=== PATIENT | female | born 1965 | race Caucasian/White ===

== ENCOUNTER 2016-11-21 10:46 | Inpatient (IN) | payer BC, MEDICARE ==
[~2016-11-21] VITALS: Ht 170.2 cm; Wt 64.6 kg
[2016-11-21 11:56] LABS: Basophils # (auto) 0 uL; Basophils % (auto) 0.4 % (0.0-2.0); Eosinophils # (auto) 0.1 uL; Hematocrit 43.3 % (36.0-46.0); Hemoglobin 14.4 g/dL (12.2-16.2); Lymphocytes % (auto) 18.6 % (10.0-50.0); Mean Corpuscular Hemoglobin 28.1 pg (28.0-32.0); Mean Corpuscular Hgb Conc. 33.2 g/dL (32.0-36.0); Mean Corpuscular Volume 84.6 fL (80.0-100.0); Mean Platelet Volume 10.4 fL (7.4-10.4); Monocytes # (auto) 0.4 uL; Monocytes % (auto) 7.2 % (0.0-12.0); Neutrophils # (auto) 3.8 uL; Neutrophils % (auto) 72.8 % (37.0-80.0); Platelet Count (auto) 254 10^3/uL (140-450); Red Cell Distribution Width 13.6 % (11.6-16.0); White Blood Cell 5.2 10^3/uL (4.4-10.8)
[2016-11-21 12:22] LABS: Urine Bilirubin Negative (Negative); Urine Blood Negative /uL (Negative); Urine Color Yellow (Yellow); Urine Nitrite Negative (Negative); Urine RBC <1 /hpf (0 - 4); Urine Squamous Epithelial Cell FEW /hpf (<5); Urine Urobilinogen Normal (Negative); Urine pH 5.5 (5.0-8.0)
[2016-11-21 12:40] LABS: Urine Glucose 4+ mg/dL (Normal); Urine Ketone 2+ (Negative)
[2016-11-21 13:16] LABS: Albumin 3.9 g/dL (3.4-5.0); Anion Gap 18 (5-15); BUN/Creatinine Ratio 17.9; Blood Urea Nitrogen 30 mg/dL (7-18); Carbon Dioxide 20 mmol/L (21-32); Chloride 93 mmol/L (98-107); GFR African American 41 mL/min; GFR Non-African American 34 mL/min; Potassium 4.3 mmol/L (3.5-5.1); Sodium 131 mmol/L (136-145)
[2016-11-21 13:22] LABS: Alkaline Phosphatase 68 U/L (45-117); Bilirubin, Total 0.5 mg/dL (0.2-1.0)
[2016-11-21 13:26] LABS: Aspartate Aminotransferase 7 U/L (15-37)
[2016-11-21 13:37] LABS: Glucose 597 mg/dL (74-106)
[2016-11-21] MEDS ORDERED: SODIUM CHLORIDE 0.9% 1,000 ML IV ONE ×2 (16:09→17:03)
[2016-11-21] MEDS ORDERED: InsuLIN REG 1unit/0.01ml Soln (100units/ml) IV ONE (16:15)
[2016-11-21] MEDS ORDERED: MORPHINE SULFATE 4 MG/ML SYRG IV ONE (17:00)
[2016-11-21] MEDS ORDERED: ONDANSETRON HCL 4 MG/2 ML VIAL IV ONE (17:00)
[2016-11-21] MEDS ORDERED: HYDROcodone-ACET 5/325MG TAB PO PRN (17:45)
[2016-11-21] MEDS ORDERED: TEMAZEPAM 15 MG CAP PO PRN (17:45)
[2016-11-21] MEDS ORDERED: NITROGLYCERIN 0.4 MG SL TAB SL PRN (17:45)
[2016-11-21] MEDS ORDERED: DOCUSATE SOD 100 MG CAP PO PRN (17:45)
[2016-11-21] MEDS ORDERED: MORPHINE SULF INJ 2 MG/ML SYRINGE 1ML IV PRN ×2 (17:45)
[2016-11-21] MEDS ORDERED: ONDANSETRON HCL 4 MG/2 ML VIAL IV PRN (17:45)
[2016-11-21] MEDS ORDERED: glipiZIDE 5 MG TAB PO ONE (17:45)
[2016-11-21] MEDS ORDERED: DEXTROSE (50%) 50ML SYRG IV PRN (17:45)
[2016-11-21] MEDS ORDERED: ACETAMINOPHEN 325 MG TAB PO PRN (17:45)
[2016-11-21] MEDS ORDERED: LORazepam 0.5 MG TAB PO PRN (19:00)
[2016-11-21 20:00] VITALS: BP_SYST 123; BP_SYST 136; BP_DIAS 68; BP_DIAS 76
[2016-11-21] MEDS: ACCU-CHEK COMFORT CURVE STRIP VI SCH (20:14)
[2016-11-21 20:31] VITALS: BP 123/68
[2016-11-21] MEDS: InsuLIN REG 1unit/0.01ml Soln (100units/ml) SC SCH (21:00)
[2016-11-21] MEDS: TACROLIMUS 1 MG CAP PO SCH (22:00)
[2016-11-21] MEDS: MYCOPHENOLATE 500 MG TAB PO SCH (22:00)
[2016-11-21] MEDS: SODIUM CHLOR 0.9% PF (SALINE LOCK) 10ML VIAL IV SCH (22:42)
[2016-11-21] MEDS: LISINOPRIL 10 MG TAB PO SCH (22:42)
[2016-11-22] VITALS (7 sets, daily range): BP systolic 95–150; BP diastolic 54–89
[2016-11-22] MEDS: ACCU-CHEK COMFORT CURVE STRIP VI SCH ×6 (00:24→21:55)
[2016-11-22] MEDS: InsuLIN REG 1unit/0.01ml Soln (100units/ml) SC SCH ×5 (00:32→22:02)
[2016-11-22 05:21] LABS: Basophils % (auto) 0.4 % (0.0-2.0); Eosinophils % (auto) 1.1 % (0.0-7.0); Lymphocytes % (auto) 25.2 % (10.0-50.0); Monocytes % (auto) 8.3 % (0.0-12.0); Neutrophils # (auto) 4.5 uL
[2016-11-22 05:22] LABS: Basophils # (auto) 0 uL; Eosinophils # (auto) 0.1 uL; Hematocrit 40.8 % (36.0-46.0); Hemoglobin 13.6 g/dL (12.2-16.2); Lymphocytes # (auto) 1.8 uL; Mean Corpuscular Hemoglobin 28.3 pg (28.0-32.0); Mean Corpuscular Hgb Conc. 33.4 g/dL (32.0-36.0); Mean Corpuscular Volume 84.5 fL (80.0-100.0); Monocytes # (auto) 0.6 uL; Platelet Count (auto) 244 10^3/uL (140-450); Red Cell Distribution Width 13.6 % (11.6-16.0)
[2016-11-22 05:41] LABS: Potassium 3.7 mmol/L (3.5-5.1)
[2016-11-22 05:47] LABS: Albumin 3.3 g/dL (3.4-5.0); BUN/Creatinine Ratio 18.2; Calcium 8.3 mg/dL (8.5-10.1)
[2016-11-22 05:49] LABS: Bilirubin, Total 0.4 mg/dL (0.2-1.0); Total Protein 5.7 g/dL (6.4-8.2)
[2016-11-22] MEDS: SODIUM CHLOR 0.9% PF (SALINE LOCK) 10ML VIAL IV SCH ×3 (05:57→21:54)
[2016-11-22] MEDS ORDERED: glipiZIDE 5 MG TAB PO SCH (07:00)
[2016-11-22] MEDS: MULTIPLE VITAMIN TAB PO SCH (10:11)
[2016-11-22] MEDS: predniSONE 5 MG TAB PO SCH (10:11)
[2016-11-22] MEDS: MYCOPHENOLATE 500 MG TAB PO SCH ×2 (10:11→21:54)
[2016-11-22] MEDS: TACROLIMUS 1 MG CAP PO SCH ×2 (10:12→21:54)
[2016-11-22] MEDS: CALCIUM W/VIT D (600MG/400IU) TAB PO SCH (10:12)
[2016-11-22] MEDS: LISINOPRIL 10 MG TAB PO SCH ×2 (10:12→21:55)
[2016-11-22] MEDS ORDERED: SODIUM CHLORIDE 0.9% 1,000 ML IV ONE ×2 (10:30)
[2016-11-22] MEDS: Boost Glucose Control 8 Ounces PO SCH ×2 (12:00→17:55)
[2016-11-22] MEDS: glipiZIDE 5 MG TAB PO SCH (17:49)
[2016-11-23 05:02] VITALS: BP 133/81
[2016-11-23 05:58] LABS: Basophils # (auto) 0 uL; Basophils % (auto) 0.5 % (0.0-2.0); Eosinophils # (auto) 0.1 uL; Eosinophils % (auto) 1.5 % (0.0-7.0); Hematocrit 36.7 % (36.0-46.0); Hemoglobin 12.4 g/dL (12.2-16.2); Lymphocytes # (auto) 1.8 uL; Mean Corpuscular Hemoglobin 28.6 pg (28.0-32.0); Mean Corpuscular Hgb Conc. 33.7 g/dL (32.0-36.0); Mean Corpuscular Volume 84.8 fL (80.0-100.0); Mean Platelet Volume 9.9 fL (7.4-10.4); Monocytes # (auto) 0.6 uL; Monocytes % (auto) 9.6 % (0.0-12.0); Neutrophils # (auto) 3.6 uL; Neutrophils % (auto) 59.4 % (37.0-80.0); Platelet Count (auto) 198 10^3/uL (140-450); Red Cell Distribution Width 13.6 % (11.6-16.0); White Blood Cell 6.1 10^3/uL (4.4-10.8)
[2016-11-23] MEDS: SODIUM CHLOR 0.9% PF (SALINE LOCK) 10ML VIAL IV SCH ×2 (06:00→13:39)
[2016-11-23] MEDS: ACCU-CHEK COMFORT CURVE STRIP VI SCH ×2 (06:33→11:29)
[2016-11-23 06:38] LABS: Albumin 2.8 g/dL (3.4-5.0); BUN/Creatinine Ratio 17.2; Bilirubin, Total 0.4 mg/dL (0.2-1.0); Calcium 8.5 mg/dL (8.5-10.1); Potassium 3.6 mmol/L (3.5-5.1); Total Protein 4.9 g/dL (6.4-8.2)
[2016-11-23] MEDS: InsuLIN REG 1unit/0.01ml Soln (100units/ml) SC SCH ×2 (06:45→11:32)
[2016-11-23] MEDS: glipiZIDE 5 MG TAB PO SCH (06:46)
[2016-11-23] MEDS: Boost Glucose Control 8 Ounces PO SCH ×2 (08:00→11:33)
[2016-11-23 09:00] VITALS: BP 149/95
[2016-11-23] MEDS: CALCIUM W/VIT D (600MG/400IU) TAB PO SCH (09:08)
[2016-11-23] MEDS: MULTIPLE VITAMIN TAB PO SCH (09:09)
[2016-11-23] MEDS: LISINOPRIL 10 MG TAB PO SCH (09:10)
[2016-11-23] MEDS: predniSONE 5 MG TAB PO SCH (09:10)
[2016-11-23] MEDS: MYCOPHENOLATE 500 MG TAB PO SCH (09:11)
[2016-11-23] MEDS: TACROLIMUS 1 MG CAP PO SCH (09:12)
[2016-11-23 13:00] VITALS: BP 160/95
[2016-11-23] MEDS ORDERED: LISI10TA6 PO (14:46)
[2016-11-23] MEDS ORDERED: TACR1CAP4 PO (14:46)
[2016-11-23] MEDS ORDERED: MYCO500T PO (14:46)
[2016-11-23] MEDS ORDERED: PRE1T PO (14:46)
[2016-11-23 14:49] VITALS: BP 149/65
== END 2016-11-23 17:01 | disposition home or self-care (01) | DRG 637 ==
LOC: ER 10:46 → TELE 10:47 → DOU IN ICU 20:23 → TELE-WESTW 11-22 16:51
PROVIDERS: ADMIT Internal Medicine; ATTEND Internal Medicine
DX: E13.10 Other specified diabetes mellitus with ketoacidosis without coma (principal); N17.0 Acute kidney failure with tubular necrosis; N18.6 End stage renal disease; G93.40 Encephalopathy, unspecified; E87.1 Hypo-osmolality and hyponatremia; I12.0 Hypertensive chronic kidney disease with stage 5 chronic kidney disease or end stage renal disease; E44.0 Moderate protein-calorie malnutrition; Z94.0 Kidney transplant status; Z94.83 Pancreas transplant status; N18.3 Chronic kidney disease, stage 3 (moderate); E86.0 Dehydration; E11.21 Type 2 diabetes mellitus with diabetic nephropathy; E11.22 Type 2 diabetes mellitus with diabetic chronic kidney disease; Z86.73 Personal history of transient ischemic attack (TIA), and cerebral infarction without residual deficits; Z79.4 Long term (current) use of insulin; Z68.22 Body mass index [BMI] 22.0-22.9, adult
CPT/HCPCS: 36415; 70450; 76775; 80053; 81001; 82150; 82306; 82962; 83036; 84484; 85025; 87040; 87081; 93005; 96374; 96375; J1815; J2405; J7507; J7517

== ENCOUNTER → 2017-01-03 | Outpatient (CLI) | payer BC, MEDICARE ==
[~2017-01-03] MED LIST: LISI10TA6 PO; MYCO500T PO; PRE1T PO; TACR1CAP4 PO
== END | disposition home or self-care (01) ==
LOC: LAB 08:45
PROVIDERS: ATTEND Obstetrics & Gynecology
DX: N95.1 Menopausal and female climacteric states (principal); N83.209 Unspecified ovarian cyst, unspecified side
CPT/HCPCS: 36415; 82670; 83001; 83002; 84403